=== PATIENT | female | born 1970 | race Two or more races ===

== ENCOUNTER 2023-07-27 15:49 | Inpatient (IN) | payer OTHER ==
[~2023-07-27] VITALS: Ht 162.6 cm; Wt 61.5 kg
[2023-07-27] MEDS ORDERED: FLUMAZENIL 0.1 MG/ML INJ 10ML MDV IV ONE ×2 (15:56→16:15)
[2023-07-27 16:00] VITALS: PULSE 66; RESP 14; O2SAT 100
[2023-07-27] MEDS ORDERED: SODIUM CHLORIDE 0.9% 2,000 ML IV ONE (16:15)
[2023-07-27] MEDS ORDERED: NALOXONE HCL 1MG/ML 2ML SYRINGE IV ONE (16:15)
[2023-07-27] MEDS ORDERED: SODIUM CHLORIDE 0.9% 1,000 ML IV ONE ×3 (16:15→16:45)
[2023-07-27] MEDS ORDERED: InsuLIN REG 1unit/0.01ml Soln (100units/ml) IV ONE (16:15)
[2023-07-27] MEDS ORDERED: SODIUM CHLORIDE 0.9% 1,000 ML IVB ONE (16:45)
[2023-07-27 16:52] LABS: Basophils # (auto) 0 10 ^3/uL (0-0.2); Basophils % (auto) 0.3 % (0.0-2.0); Eosinophils # (auto) 0 10 ^3/uL (0-0.8); Hematocrit 39.3 % (36.0-46.0); Hemoglobin 12.8 g/dL (12.2-16.2); Lymphocytes # (auto) 1.4 10 ^3/uL (0.4-5.4); Lymphocytes % (auto) 10.6 % (10.0-50.0); Mean Corpuscular Hemoglobin 28.6 pg (28.0-32.0); Mean Corpuscular Hgb Conc. 32.5 g/dL (32.0-36.0); Monocytes # (auto) 0.5 10 ^3/uL (0-1.3); Monocytes % (auto) 3.8 % (0.0-12.0); Neutrophils # (auto) 10.9 10 ^3/uL (1.6-8.6); Neutrophils % (auto) 85.3 % (37.0-80.0); Red Blood Cells 4.46 10^6/uL (4.0-5.20); Red Cell Distribution Width 13.6 % (11.8-14.3); White Blood Cell 12.8 10^3/uL (4.4-10.8)
[2023-07-27] MEDS ORDERED: InsuLIN REG 1unit/0.01ml Soln (100units/ml) ONE ×2 (16:59→22:33)
[2023-07-27 17:10] LABS: Alanine Aminotransferase 29 U/L (7-40); Albumin 4.5 g/dL (3.2-4.8); Alkaline Phosphatase 117 U/L (46-116); Anion Gap 8 (5-15); Aspartate Aminotransferase 19 U/L (13-40); BUN/Creatinine Ratio 12.4 (10.0-20.0); Blood Urea Nitrogen 11 mg/dL (9-23); Calcium 9.4 mg/dL (8.7-10.4); Carbon Dioxide 26 mmol/L (20-30); Chloride 97 mmol/L (98-107); Potassium 4.2 mmol/L (3.5-5.1); Sodium 131 mmol/L (136-145)
[2023-07-27 17:11] LABS: Bilirubin, Total 0.3 mg/dL (0.2-1.0); Total Protein 6.7 g/dL (5.7-8.2)
[2023-07-27 17:14] LABS: Glucose 479 mg/dL (74-106)
[2023-07-27] MEDS ORDERED: DEXTROSE (50%) 50ML SYRG IV PRN (18:30)
[2023-07-27] MEDS ORDERED: hydrALAZINE HCL 20 MG/ML VL IV PRN (18:30)
[2023-07-27] MEDS ORDERED: ONDANSETRON HCL 4 MG/2 ML VIAL IV PRN (18:45)
[2023-07-27] MEDS ORDERED: cefTRIAXone 1GM/50ML D5W 50 ML IV ONE ×2 (19:15→21:48)
[2023-07-27] MEDS ORDERED: PANTOPRAZOLE 40 MG/10 ML VIAL INJ IV ONE ×2 (19:15→21:47)
[2023-07-27 19:34] LABS: Urine Bacteria NONE SEEN /hpf (None Seen); Urine Blood Negative /uL (Negative); Urine Clarity HAZY (Clear); Urine Color Colorless (Yellow); Urine Protein, UAD Negative (Negative); Urine Specific Gravity 1.029 (1.001-1.035); Urine Urobilinogen Normal (Negative); Urine WBC 2 /hpf (0 - 5)
[2023-07-27 19:34] LABS: Triglycerides 123 mg/dL (< 150)
[2023-07-27 19:35] LABS: LDL Cholesterol 120 mg/dL (< 100)
[2023-07-27 19:36] LABS: Cholesterol 180 mg/dL (< 200); HDL Cholesterol 52 mg/dL (40-59)
[2023-07-27 19:37] LABS: Amphetamine Screen, Urine Neg (NEGATIVE); Barbiturate Scree,Urine Neg (NEGATIVE); Benzodiazephine Screen, Urine Neg (NEGATIVE)
[2023-07-27 19:38] LABS: Cannabinoid Screen, Urine Neg (NEGATIVE); Cocaine Screen, Urine Neg (NEGATIVE); Opiate Scree,Urine Neg (NEGATIVE); Phencyclidine Screen, Urine Neg (NEGATIVE)
[2023-07-27 19:41] LABS: Lactic Acid w/Reflex 2.9 mmol/L (0.4-2.0)
[2023-07-27 21:32] VITALS: PULSE 79; RESP 20; O2SAT 95
[2023-07-27] MEDS: SODIUM CHLORIDE 0.9% 1,000 ML IV SCH (21:55)
[2023-07-27] MEDS ORDERED: ONDANSETRON HCL 4 MG/2 ML VIAL ONE (21:56)
[2023-07-27] MEDS: ACCU-CHEK COMFORT CURVE STRIP VI SCH (22:23)
[2023-07-27] MEDS: InsuLIN REG 1unit/0.01ml Soln (100units/ml) SC SCH (22:35)
[2023-07-28] MEDS ORDERED: METOCLOPRAMIDE HCL 5MG/ml INJ 2ml VIAL IV PRN (01:45)
[2023-07-28] MEDS ORDERED: METOCLOPRAMIDE HCL 5MG/ml INJ 2ml VIAL ONE (01:45)
[2023-07-28] MEDS ORDERED: MELATONIN 5 MG TAB PO ONE (01:45)
[2023-07-28] MEDS ORDERED: LORazepam 2MG/ML-1ML VIAL IV ONE ×2 (01:45→02:00)
[2023-07-28] MEDS ORDERED: LORazepam 0.5 MG TAB PO ONE (01:45)
[2023-07-28] MEDS ORDERED: MELATONIN 5 MG TAB ONE (01:45)
[2023-07-28] MEDS ORDERED: LORazepam 2MG/ML-1ML VIAL ONE (01:49)
[2023-07-28] MEDS: SODIUM CHLORIDE 0.9% 1,000 ML IV SCH ×2 (04:50→19:45)
[2023-07-28 04:52] LABS: Basophils # (auto) 0 10 ^3/uL (0-0.2); Basophils % (auto) 0.1 % (0.0-2.0); Eosinophils # (auto) 0 10 ^3/uL (0-0.8); Hematocrit 36.4 % (36.0-46.0); Lymphocytes # (auto) 1.4 10 ^3/uL (0.4-5.4); Lymphocytes % (auto) 18.8 % (10.0-50.0); Mean Corpuscular Hemoglobin 28.9 pg (28.0-32.0); Mean Corpuscular Hgb Conc. 32.9 g/dL (32.0-36.0); Mean Corpuscular Volume 87.8 fL (80.0-100.0); Monocytes # (auto) 0.2 10 ^3/uL (0-1.3); Monocytes % (auto) 2.9 % (0.0-12.0); Neutrophils # (auto) 5.8 10 ^3/uL (1.6-8.6); Neutrophils % (auto) 78.2 % (37.0-80.0); Red Blood Cells 4.14 10^6/uL (4.0-5.20); Red Cell Distribution Width 13.8 % (11.8-14.3); White Blood Cell 7.5 10^3/uL (4.4-10.8)
[2023-07-28 07:05] LABS: Alanine Aminotransferase 25 U/L (7-40); Albumin 3.9 g/dL (3.2-4.8); Alkaline Phosphatase 84 U/L (46-116); Anion Gap 10 (5-15); Aspartate Aminotransferase 21 U/L (13-40); Bilirubin, Total 0.2 mg/dL (0.2-1.0); Blood Urea Nitrogen 6 mg/dL (9-23); Calcium 8.3 mg/dL (8.7-10.4); Carbon Dioxide 22 mmol/L (20-30); Chloride 105 mmol/L (98-107); Glucose 188 mg/dL (74-106); Potassium 3.3 mmol/L (3.5-5.1); Total Protein 6.3 g/dL (5.7-8.2)
[2023-07-28 07:07] LABS: Sodium 137 mmol/L (136-145)
[2023-07-28] MEDS: ACCU-CHEK COMFORT CURVE STRIP VI SCH ×3 (07:27→21:57)
[2023-07-28 08:07] VITALS: PULSE 106; RESP 20
[2023-07-28] MEDS ORDERED: InsuLIN REG 1unit/0.01ml Soln (100units/ml) ONE ×3 (08:44→21:51)
[2023-07-28] MEDS ORDERED: PANTOPRAZOLE 40 MG/10 ML VIAL INJ IV ONE (08:46)
[2023-07-28] MEDS ORDERED: cefTRIAXone 1GM/50ML D5W 50 ML IV ONE (08:51)
[2023-07-28] MEDS ORDERED: ENOXAPARIN SOD 40 MG/0.4 ML SYRINGE SC ONE ×2 (08:59→09:00)
[2023-07-28 09:00] VITALS: BP 130/77; PULSE 106; RESP 20; TEMP 98.8; O2SAT 100
[2023-07-28] MEDS: cefTRIAXone 1GM/50ML D5W 50 ML IV SCH (09:02)
[2023-07-28] MEDS: ENOXAPARIN SOD 40 MG/0.4 ML SYRINGE SC SCH (09:02)
[2023-07-28] MEDS: PANTOPRAZOLE 40 MG/10 ML VIAL INJ IV SCH (09:02)
[2023-07-28] MEDS: InsuLIN REG 1unit/0.01ml Soln (100units/ml) SC SCH ×4 (09:04→21:56)
[2023-07-28] MEDS ORDERED: PROP1TAB53 PO (10:05)
[2023-07-28] MEDS ORDERED: QUET300T24 PO (10:05)
[2023-07-28] MEDS ORDERED: ARIP2TAB PO (10:05)
[2023-07-28] MEDS ORDERED: LAM100T PO (10:05)
[2023-07-28] MEDS ORDERED: HYDR50TA32 PO (10:05)
[2023-07-28] MEDS ORDERED: CLON0.5T3 PO (10:05)
[2023-07-28] MEDS ORDERED: GABA-1308 PO (10:05)
[2023-07-28] MEDS ORDERED: DULO60CA41 PO (10:05)
[2023-07-28 13:00] VITALS: BP 116/68; PULSE 88; RESP 16; TEMP 99.6; O2SAT 95
[2023-07-28 16:50] VITALS: BP 126/71; PULSE 95; RESP 18; TEMP 99.1; O2SAT 96
[2023-07-28] MEDS ORDERED: clonazePAM 0.5 MG TAB PO PRN (17:00)
[2023-07-28] MEDS ORDERED: hydrOXYzine 25 MG TAB or CAP ONE (17:30)
[2023-07-28] MEDS: hydrOXYzine 25 MG TAB or CAP PO SCH (17:36)
[2023-07-28 20:00] VITALS: BP 111/66; PULSE 86; PULSE 95; RESP 17; TEMP 98.8; O2SAT 97
[2023-07-28] MEDS ORDERED: QUEtiapine FUMARATE 100 MG TAB ONE (21:50)
[2023-07-28] MEDS ORDERED: GABAPENTIN 400 MG CAP ONE (21:50)
[2023-07-28] MEDS ORDERED: DULoxetine HCL 30 MG CAP PO ONE (21:51)
[2023-07-28] MEDS: QUEtiapine FUMARATE 100 MG TAB PO SCH (21:53)
[2023-07-28] MEDS: DULoxetine HCL 30 MG CAP PO SCH (21:53)
[2023-07-28] MEDS: GABAPENTIN 400 MG CAP PO SCH (21:53)
[2023-07-28 22:00] VITALS: BP 111/66; PULSE 86; RESP 17; TEMP 98.8; O2SAT 97
[2023-07-29] VITALS (7 sets, daily range): BP systolic 116–146; BP diastolic 63–84; PULSE 78–90; RESP 16–22; TEMP 97.8–98.7; O2SAT 93–97
[2023-07-29] MEDS: SODIUM CHLORIDE 0.9% 1,000 ML IV SCH ×3 (04:05→20:49)
[2023-07-29] MEDS: ACCU-CHEK COMFORT CURVE STRIP VI SCH ×4 (06:33→22:02)
[2023-07-29] MEDS: InsuLIN REG 1unit/0.01ml Soln (100units/ml) SC SCH ×4 (06:35→21:54)
[2023-07-29] MEDS: cefTRIAXone 1GM/50ML D5W 50 ML IV SCH (08:45)
[2023-07-29] MEDS: PANTOPRAZOLE 40 MG/10 ML VIAL INJ IV SCH (08:46)
[2023-07-29] MEDS: hydrOXYzine 25 MG TAB or CAP PO SCH (08:46)
[2023-07-29] MEDS: DULoxetine HCL 30 MG CAP PO SCH ×2 (08:46→21:51)
[2023-07-29] MEDS: lamoTRIgine 100 MG TAB PO SCH (08:46)
[2023-07-29] MEDS: ENOXAPARIN SOD 40 MG/0.4 ML SYRINGE SC SCH (08:46)
[2023-07-29] MEDS: PROPRANOLOL HCL 20 MG TAB PO SCH (08:54)
[2023-07-29] MEDS: QUEtiapine FUMARATE 100 MG TAB PO SCH (21:51)
[2023-07-29] MEDS: GABAPENTIN 400 MG CAP PO SCH (21:51)
[2023-07-29] MEDS ORDERED: ACETAMINOPHEN 325 MG TAB PO ONE (22:30)
[2023-07-29] MEDS ORDERED: MELATONIN 5 MG TAB PO ONE (22:45)
[2023-07-30] VITALS (7 sets, daily range): BP systolic 112–140; BP diastolic 66–81; PULSE 71–83; RESP 15–22; TEMP 36.8; O2SAT 93–95
[2023-07-30] MEDS: SODIUM CHLORIDE 0.9% 1,000 ML IV SCH ×3 (05:18→21:45)
[2023-07-30] MEDS: ACCU-CHEK COMFORT CURVE STRIP VI SCH ×4 (06:10→21:40)
[2023-07-30] MEDS: InsuLIN REG 1unit/0.01ml Soln (100units/ml) SC SCH ×4 (06:11→21:23)
[2023-07-30] MEDS: PROPRANOLOL HCL 20 MG TAB PO SCH (09:55)
[2023-07-30] MEDS: DULoxetine HCL 30 MG CAP PO SCH ×2 (09:55→21:40)
[2023-07-30] MEDS: hydrOXYzine 25 MG TAB or CAP PO SCH (09:55)
[2023-07-30] MEDS: lamoTRIgine 100 MG TAB PO SCH (09:55)
[2023-07-30] MEDS: PANTOPRAZOLE 40 MG/10 ML VIAL INJ IV SCH (09:55)
[2023-07-30] MEDS: cefTRIAXone 1GM/50ML D5W 50 ML IV SCH (09:55)
[2023-07-30] MEDS: ENOXAPARIN SOD 40 MG/0.4 ML SYRINGE SC SCH (09:56)
[2023-07-30] MEDS ORDERED: DEXTROSE (50%) 50ML SYRG IV PRN (12:30)
[2023-07-30] MEDS ORDERED: INSU1INJ19 SC (12:35)
[2023-07-30] MEDS: QUEtiapine FUMARATE 100 MG TAB PO SCH (21:40)
[2023-07-30] MEDS: GABAPENTIN 400 MG CAP PO SCH (21:40)
[2023-07-30] MEDS ORDERED: MELATONIN 5 MG TAB PO ONE (22:00)
[2023-07-31] VITALS (8 sets, daily range): BP systolic 96–154; BP diastolic 52–86; PULSE 74–90; RESP 16–20; TEMP 97.9–99; O2SAT 94–98
[2023-07-31] MEDS: ACCU-CHEK COMFORT CURVE STRIP VI SCH ×3 (06:00→17:52)
[2023-07-31] MEDS: SODIUM CHLORIDE 0.9% 1,000 ML IV SCH ×3 (06:05→22:57)
[2023-07-31] MEDS: InsuLIN REG 1unit/0.01ml Soln (100units/ml) SC SCH ×3 (06:34→17:56)
[2023-07-31] MEDS: PANTOPRAZOLE 40 MG/10 ML VIAL INJ IV SCH (10:42)
[2023-07-31] MEDS: DULoxetine HCL 30 MG CAP PO SCH ×2 (10:42→21:18)
[2023-07-31] MEDS: ENOXAPARIN SOD 40 MG/0.4 ML SYRINGE SC SCH (10:42)
[2023-07-31] MEDS: PROPRANOLOL HCL 20 MG TAB PO SCH (10:43)
[2023-07-31] MEDS: lamoTRIgine 100 MG TAB PO SCH (10:43)
[2023-07-31] MEDS: hydrOXYzine 25 MG TAB or CAP PO SCH (10:43)
[2023-07-31] MEDS: GABAPENTIN 400 MG CAP PO SCH (21:18)
[2023-07-31] MEDS: QUEtiapine FUMARATE 100 MG TAB PO SCH (21:18)
[2023-08-01] VITALS (7 sets, daily range): BP systolic 108–145; BP diastolic 64–88; PULSE 70–84; RESP 16–18; TEMP 97.7–98.7; O2SAT 95–100
[2023-08-01] MEDS: InsuLIN REG 1unit/0.01ml Soln (100units/ml) SC SCH ×4 (00:44→17:25)
[2023-08-01] MEDS: ACCU-CHEK COMFORT CURVE STRIP VI SCH ×5 (00:45→23:58)
[2023-08-01] MEDS: hydrOXYzine 25 MG TAB or CAP PO SCH (09:36)
[2023-08-01] MEDS: ENOXAPARIN SOD 40 MG/0.4 ML SYRINGE SC SCH (09:36)
[2023-08-01] MEDS: PROPRANOLOL HCL 20 MG TAB PO SCH (09:36)
[2023-08-01] MEDS: DULoxetine HCL 30 MG CAP PO SCH ×2 (09:36→21:03)
[2023-08-01] MEDS: PANTOPRAZOLE 40 MG/10 ML VIAL INJ IV SCH (09:36)
[2023-08-01] MEDS: lamoTRIgine 100 MG TAB PO SCH (09:36)
[2023-08-01] MEDS: SODIUM CHLORIDE 0.9% 1,000 ML IV SCH ×2 (09:38→15:30)
[2023-08-01] MEDS: GABAPENTIN 400 MG CAP PO SCH (21:03)
[2023-08-01] MEDS: QUEtiapine FUMARATE 100 MG TAB PO SCH (21:03)
[2023-08-02] MEDS: InsuLIN REG 1unit/0.01ml Soln (100units/ml) SC SCH ×3 (00:01→12:00)
[2023-08-02] MEDS: SODIUM CHLORIDE 0.9% 1,000 ML IV SCH ×2 (02:05→08:05)
[2023-08-02 05:00] VITALS: BP 107/67; PULSE 75; RESP 18; TEMP 98.1; O2SAT 94
[2023-08-02] MEDS: ACCU-CHEK COMFORT CURVE STRIP VI SCH ×2 (05:41→12:00)
[2023-08-02 08:00] VITALS: PULSE 76
[2023-08-02 09:00] VITALS: BP 135/86; PULSE 78; RESP 20; TEMP 98.4; O2SAT 97
[2023-08-02] MEDS: hydrOXYzine 25 MG TAB or CAP PO SCH (09:01)
[2023-08-02] MEDS: PANTOPRAZOLE 40 MG/10 ML VIAL INJ IV SCH (09:02)
[2023-08-02] MEDS: lamoTRIgine 100 MG TAB PO SCH (09:02)
[2023-08-02] MEDS: PROPRANOLOL HCL 20 MG TAB PO SCH (09:02)
[2023-08-02] MEDS: DULoxetine HCL 30 MG CAP PO SCH (09:02)
[2023-08-02] MEDS: ENOXAPARIN SOD 40 MG/0.4 ML SYRINGE SC SCH (09:03)
[2023-08-02 11:36] VITALS: BP 135/86; PULSE 78; RESP 20; TEMP 98.4; O2SAT 97
[2023-08-02 12:51] VITALS: BP 141/86; PULSE 80; RESP 20; TEMP 98.5; O2SAT 99
== END 2023-08-02 13:05 | disposition home or self-care (01) | DRG 70 ==
LOC: ER 15:49 → TELE 18:47 → TELE-WESTW 07-28 07:59
PROVIDERS: ADMIT Nurse Practitioner Family; ATTEND Family Medicine
DX: G93.41 Metabolic encephalopathy (principal); E11.10 Type 2 diabetes mellitus with ketoacidosis without coma; J96.01 Acute respiratory failure with hypoxia; E87.1 Hypo-osmolality and hyponatremia; E66.01 Morbid (severe) obesity due to excess calories; G40.909 Epilepsy, unspecified, not intractable, without status epilepticus; F20.9 Schizophrenia, unspecified; E86.0 Dehydration; D72.829 Elevated white blood cell count, unspecified; F41.9 Anxiety disorder, unspecified; F32.A Depression, unspecified; Z79.4 Long term (current) use of insulin; Z79.899 Other long term (current) drug therapy; Z82.49 Family history of ischemic heart disease and other diseases of the circulatory system; Z83.3 Family history of diabetes mellitus; Z90.710 Acquired absence of both cervix and uterus; Z68.23 Body mass index [BMI] 23.0-23.9, adult
CPT/HCPCS: 36415; 36600; 70450; 70551; 71045; 80053; 80061; 80307; 80320; 81001; 82010; 82805; 82962; 83036; 83605; 84443; 84484; 85025; 87040; 93005; 96361; 96365; 96375; 99291; C9113; G0378; J1815; J2405

== ENCOUNTER 2025-02-20 18:28 | Inpatient (IN) | payer OTHER ==
[~2025-02-20] VITALS: Ht 154.9 cm; Wt 74.0 kg
[~2025-02-20 18:28] MED LIST: ARIP2TAB PO; CLON0.5T3 PO; DULO60CA41 PO; GABA-1308 PO; HYDR50TA32 PO; INSU1INJ19 SC; LAM100T PO; PROP1TAB53 PO; QUET300T24 PO
[2025-02-20 19:44] LABS: Hematocrit 40.3 % (36.0-46.0); Hemoglobin 13.5 g/dL (12.2-16.2); Mean Corpuscular Hemoglobin 28.4 pg (28.0-32.0); Mean Corpuscular Volume 85.1 fL (80.0-100.0); Nucleated Red Blood Cells % 0.0 %
[2025-02-20 20:02] LABS: Alanine Aminotransferase 31 U/L (7-40); Albumin 4.4 g/dL (3.2-4.8); Alkaline Phosphatase 113 U/L (46-116); Calcium 10.3 mg/dL (8.7-10.4); Carbon Dioxide 26 mmol/L (20-31); Chloride 101 mmol/L (98-107)
[2025-02-20 20:03] LABS: Anion Gap 10 (5-15); BUN/Creatinine Ratio 14.7 (10.0-20.0); Blood Urea Nitrogen 15 mg/dL (9-23); Magnesium 1.8 mg/dL (1.6-2.6); Potassium 3.9 mmol/L (3.5-5.1); Sodium 137 mmol/L (136-145); Total Protein 7.0 g/dL (5.7-8.2)
[2025-02-20 20:05] LABS: Bilirubin, Total 0.2 mg/dL (0.2-1.0); Glucose 117 mg/dL (74-106)
[2025-02-20 20:12] LABS: Lactic Acid w/Reflex 3.0 mmol/L (0.4-2.0)
--- NOTE | 2025-02-20 20:22 | ED.PDOC ---
History of Present Illness HPI Comments HPI: 54 year old female presents to the emergency department with a chief complaint of hyperglycemia onset today (02/20/25). Patient states she checked BG at home, was over 500, came to ED. Patient took 15 units insulin around 17:00. Upon ED arrival BG was 136. Patient states she is currently experiencing dizziness, worsens when standing. No other symptoms or modifying factors present at this time. Patient is on multiple anxiety medications. She did not take her medications for today. Initial Vitals BP: 104/69 HR: 112 RR: 18 O2: 97% Temp: 98.6 F Past Medical History: DM, seizures, anxiety Past Surgical History: hysterectomy, cholecystectomy Social History: Denies ETOH, smoking, and drug use. Medications: Insulin Allergies: NKDA ALVAREZ: HPI: Poor Historian. REVIEW OF SYSTEMS: CONSTITUTIONAL: Denies acute: fever, diaphoresis, chills, generalized weakness. HEAD: Denies acute: headache, photophobia Eyes: Denies acute: Double vision, vision loss, eye pain, eye discharge. EARS: Denies acute: tinnitus, hearing loss, ear discharge, ear pain, THROAT: Denies acute: sore throat, swelling, difficulty swallowing , pain with swallowing, change in voice. NECK: Denies acute: neck pain, neck swelling, stiff neck. HEART: Denies acute : chest pain, palpitations, LUNGS: Denies acute: SOB, wheezing, cough, hemoptysis ABDOMEN: Denies acute: abdominal pain, Nausea, Vomiting, diarrhea, melena , hematemesis, hematochezia SKIN: Denies acute: rash, redness, lesions, itchiness. EXTREMITIES: Denies acute: calf pain, numbness, tingling, weakness, denies pain in extremity. Denies acute: Low back pain. Neuro: Denies acute: focal neurological deficit, motor or sensory focal neurological deficit, tremors, seizure like activity, confusion, change in mental status, loss of bowel or bladder function, cauda equina like symptoms. : Denies acute: dysuria, hematuria, flank pain, increase in urinary frequency. PSYCH: Denies acute: hallucination, suicidal ideation, homicidal ideation. FEMALE: Denies acute: abnormal vaginal bleeding, foul odor, unusual discharge. PHYSICAL EXAM: General: ----no----acute distress, awake and alert. Head: normocephalic, atraumatic. Neck: supple, trachea is midline, no swelling. Throat: Normal phonation. Eyes:, no erythema, no purulent discharge, no proptosis, no icterus. Heart: regular tachycardia, no significant murmur appreciated. Lungs: no apparent respiratory distress, Able to speak in full sentences. No wheezing, no rhonchi, no crackles. No stridors Clear to auscultation bilaterally. Abdomen: non tender to palpation, non distended, soft, no guarding, no rebound, + bowel sounds. Neuro: Awake, Alert, oriented to name, self, situation, follows commands GCS=15. Speech is normal. Skin: no petechia, no purpura, no cyanosis, non-pale, not jaundice. Lower extremities: --no - Pitting edema no deformity, no focal swelling, no calf TTP. Makes eye contact. moves all four extremities. Face: no apparent facial droop. Ambulating in the ED independently. ED COURSE: DISCLAIMER: This medical document was created using an electronic medical record system with voice recognition software and computerized dictation system. Although this document has been carefully reviewed, there might still be some phonetic and typographical errors. Occasional wrong-word or "sound-alike" substitutions may have occurred due to the inherent limitations of voice recognition software. These areas are purely typographical due to imperfections of the software p devika and do not reflect any compromise in the patient's medical care. Please read the chart carefully and recognize, using context, where these substitutions have occurred. Chief Complaint: Hyperglycemia Time Seen by MD: 20:00 Primary Care Provider: KOLBY Portillo Notes: Medications, Allergies Allergies: Coded Allergies: NO KNOWN ALLERGIES (Unverified , 07/27/23) Home Meds Active Scripts Nitrofurantoin Monohydrate Mac (Macrobid) 100 Mg Cap, 100 MG PO BID for 7 Days, #14 CAP Prov:JOSE ROGEL DO 02/20/25 Reported Medications Insulin Glargine (Basaglar Kwikpen) 100 Unit/Ml Inj, 25 UNIT SC HS, INJ 07/30/23 Propranolol HCl (Propranolol Hydrochloride) 20 Mg Tab, 20 MG PO DAILYP, TAB 07/28/23 Hydroxyzine HCl (Hydroxyzine Hydrochloride) 50 Mg Tab, 50 MG PO DAILYP, TAB 07/28/23 Aripiprazole (Abilify) 2 Mg Tab, 5 MG PO DAILY, TAB 07/28/23 Lamotrigine (Lamictal) 100 Mg Tab, 1 TAB PO DAILY 07/28/23 Clonazepam (KlonoPIN TABLET) 0.5 Mg Tb, 1 TAB PO PRN 07/28/23 Gabapentin (Gabapentin) 100 Mg Cap, 400 MG PO HS 07/28/23 Quetiapine Fumerate (QUETIAPINE FUMARATE) 300 Mg Tab, 300 MG PO HS 07/28/23 Duloxetine Hcl (Cymbalta) 60 Mg Cap, 60 MG PO BID, CAP 07/28/23 Information Source: Patient Mode of Arrival: Ambulatory Severity: Moderate Timing: Hours Duration: Since onset Prehospital treatment: None Past Medical History PAST MEDICAL HISTORY: DM, Seizures Surgical History: Cholecystectomy, Hysterectomy CONSULTATIVE SALES 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 Was a procedure done?: No X-Ray, Labs, Meds, VS Vital Signs Date Time Temp Pulse Resp B/P (MAP) Pulse Ox O2 Delivery O2 Flow Rate FiO2 02/21/25 00:46 97.2 77 20 125/89 (101) 100 97.2 02/20/25 23:08 97.7 94 20 150/90 (110) 100 97.7 02/20/25 23:08 94 20 100 Room Air 02/20/25 19:14 98.6 112 18 104/69 (81) 97 98.6 Lab Test 02/20/25 23:33 02/20/25 21:29 02/20/25 20:09 02/20/25 19:25 Range/Units Lactic Acid Level 2.1 *H 3.0 *H 3.0 *H 0.4-2.0 mmol/L Urine Color Colorless Yellow Urine Clarity Clear Clear Urine pH 6.0 5.0-9.0 Urine Specific [place] 1.006 1.001-1.035 Urine Protein Negative Negative Urine Ketones Negative Negative Urine Blood Negative Negative /uL Urine Nitrite Negative Negative Urine Bilirubin Negative Negative Urine Urobilinogen Normal Negative mg/dL Urine Leukocyte Esterase 2+ Negative /uL Urine RBC 1 0 - 4 /hpf Urine Microscopic WBC 4 0-5 /HPF Urine Squamous Epithelial Cells Few <5 /hpf Urine Bacteria Few H None Seen /hpf Urine Glucose 2+ H Normal mg/dL White Blood Count 7.8 4.4-10.8 10^3/uL Red Blood Count 4.73 4.0-5.20 10^6/uL Hemoglobin 13.5 12.2-16.2 g/dL Hematocrit 40.3 36.0-46.0 % Mean Corpuscular Volume 85.1 80.0-100.0 fL Mean Corpuscular Hemoglobin 28.4 28.0-32.0 pg Mean Corpuscular Hemoglobin Concent 33.4 32.0-36.0 g/dL Red Cell Distribution Width 13.3 11.8-14.3 % Platelet Count 315 140-450 10^3/uL Mean Platelet Volume 7.3 6.9-10.8 fL Neutrophils (%) (Auto) 66.9 37.0-80.0 % Lymphocytes (%) (Auto) 26.6 10.0-50.0 % Monocytes (%) (Auto) 5.0 0.0-12.0 % Eosinophils (%) (Auto) 0.8 0.0-7.0 % Basophils (%) (Auto) 0.7 0.0-2.0 % Neutrophils # (Auto) 5.2 1.6-8.6 10 ^3/uL Lymphocytes # (Auto) 2.1 0.4-5.4 10 ^3/uL Monocytes # (Auto) 0.4 0-1.3 10 ^3/uL Eosinophils # (Auto) 0.1 0-0.8 10 ^3/uL Basophils # (Auto) 0.1 0-0.2 10 ^3/uL Nucleated Red Blood Cells 0.0 % Sodium Level 137 136-145 mmol/L Potassium Level 3.9 3.5-5.1 mmol/L Chloride Level 101 98-107 mmol/L Carbon Dioxide Level 26 20-31 mmol/L Anion Gap 10 5-15 Blood Urea Nitrogen 15 9-23 mg/dL Creatinine 1.02 0.550-1.02 mg/dL Glomerular Filtration Rate Calc 65 >90 mL/min BUN/Creatinine Ratio 14.7 10.0-20.0 Serum Glucose 117 H 74-106 mg/dL Calcium Level 10.3 8.7-10.4 mg/dL Magnesium Level 1.8 1.6-2.6 mg/dL Total Bilirubin 0.2 0.2-1.0 mg/dL Aspartate Amino Transferase (AST) 25 13-40 U/L Alanine Aminotransferase (ALT) 31 7-40 U/L Alkaline Phosphatase 113 46-116 U/L Total Protein 7.0 5.7-8.2 g/dL Albumin 4.4 3.2-4.8 g/dL Test 02/20/25 19:11 Range/Units POC Glucose 136 H 70-106 mg/dl Current Medications Medications (Trade) Dose Ordered Sig/Candace Route Start Time Stop Time Status Last Admin Sodium Chloride 1,000 ml @ 1,000 mls/hr Q1H ONCE IV 02/20/25 20:30 02/20/25 21:29 DC 02/20/25 20:30 Ceftriaxone Sodium 50 ml @ 100 mls/hr ONCE ONCE IV 02/20/25 20:30 02/20/25 20:59 DC 02/20/25 22:37 Sodium Chloride 1,000 ml @ 1,000 mls/hr Q1H ONCE IV 02/20/25 22:45 02/20/25 23:44 DC 02/20/25 23:03 Lorazepam (Ativan Inj) 1 mg ONCE ONCE IV 02/20/25 23:15 02/20/25 23:16 DC 02/20/25 23:43 Time of 1ST Reevaluation: 20:30 Reevaluation 1ST: Unchanged Time of 2ND Reevaluation: 00:48 Reevaluation 2ND: Improved Patient Education/Counseling: Diagnosis, Treatment Family Education/Counseling: No Family Present Comments Patient presented with the above HPI.--mild dizziness/hyperglycemia---workup was initiated. patient was found with the above mentioned diagnosis. the following medications were ordered: please refer to order lists of meds and tests obtained by myself Dr. Rogel. Patient ED course and VS have been stabilized. Patient has been reassessed in the ED and remained in a stable condition. Pertinent incidental findings were discussed with the patient and/or family. Patient/family voices understanding and is agreeable with plan. Patient has been observed in the ED adequate length of time to insure improvement/stability. Escalation of care considered: Consideration of escalation to observation or admission Patient was found with elevated lactic acid and initial tachycardia. Patient has been anxiety. Patient was given at least 2 L normal saline bolus. Repeat lactic acid is still slightly elevated. Heart rate improved. Antibiotics given for UTI. Patient was ADMITTED to the medicine team for further evaluation and treatment of their presentation. All the reports of any imaging studies that were ordered by myself were reviewed by myself. Departure 1 Departure Time of Disposition: 21:58 Impression: Primary Impression: UTI (urinary tract infection) Additional Impression: Elevated lactic acid level Disposition: HOME / SELF CARE / HOMELESS Admit to: Tele Condition: Guarded Additional Instructions: e-Prescriptions Nitrofurantoin Monohydrate Mac (Macrobid) 100 Mg Cap 100 MG PO BID for 7 Days, #14 CAP Prov: JOSE ROGEL DO 02/20/25 Discharged With: Self Critical Care Note Critical Care Time?: No I personally scribed for JOSE ROGEL DO ([email or web address]) on 02/20/25 at 20:21. Bev ctronically submitted by Cayla Glez ([email or web address]). JOSE ROGEL DO Feb 20, 2025 20:21
[2025-02-20] MEDS: SODIUM CHLORIDE 0.9% 1,000 ML IV ONE ×2 (20:30→23:03)
[2025-02-20 20:58] LABS: Urine Protein, UAD Negative (Negative)
[2025-02-20] MEDS ORDERED: NITR-87 PO (21:58)
[2025-02-20] MEDS: cefTRIAXone 1GM/50ML D5W 50 ML IV ONE (22:37)
[2025-02-20] MEDS: LORazepam 2MG/ML-1ML VIAL IV ONE (23:43)
[2025-02-21] VITALS (7 sets, daily range): BP systolic 114–140; BP diastolic 78–89; PULSE 93–97; RESP 17–18; TEMP 98–100.2; O2SAT 96–97
[2025-02-21 00:32] LABS: Lactic Acid w/Reflex 2.1 mmol/L (0.4-2.0)
[2025-02-21] MEDS ORDERED: ACETAMINOPHEN 325 MG TAB PO PRN (03:30)
[2025-02-21] MEDS ORDERED: LORazepam 2MG/ML-1ML VIAL IV PRN (03:30)
[2025-02-21] MEDS ORDERED: DEXTROSE (50%) 50ML SYRG IV PRN (03:30)
[2025-02-21] MEDS ORDERED: ONDANSETRON HCL 4 MG/2 ML VIAL IV PRN (03:30)
[2025-02-21] MEDS ORDERED: HYDROcodone-ACET 5/325MG TAB PO PRN (03:30)
[2025-02-21] MEDS ORDERED: NITROGLYCERIN 0.4 MG SL TAB SL PRN (03:30)
[2025-02-21] MEDS ORDERED: MORPHINE SULFATE INJ 2 MG/ml SYRG IV PRN (03:30)
[2025-02-21] MEDS ORDERED: DOCUSATE SOD 100 MG CAP PO PRN (03:30)
--- NOTE | 2025-02-21 03:55 | DVHHP2 ---
History of Present Illness Reason for Visit: UTI (urinary tract infection) History of Present Illness The patient is a 54-year-old female with past medical history of anxiety, diabetes mellitus, and seizures who presented to [facility] ED with complaint of elevated blood sugar. Patient reports she checked blood glucose at home, and it was over 500, so she decided came to ED. Patient took 15 units insulin around 17:00, blood sugar initial in the ED was 136. Patient states she is currently experiencing dizziness, worsens when standing. Patient was seen and evaluated in the ED, laboratory data shows WBC 7.8, platelets 315, sodium 137, potassium 3.9, BUN 15, creatinine 1.02, glucose 117, calcium 10.3, lactic acid 3.0 trending down to 1.7, blood pressure 125/89, heart rate 77, temperature 97.6 F, O2 saturation 99% on room air. Urinalysis positive for urinary tract infection. Patient was started on IV antibiotic regimen Rocephin, please see medication orders section in the computer. On my assessment, patient denied chest pain, no headache, no dizziness, no blurry vision, no shortness of breath, no nausea, no vomiting, no fever, no chills. Patient was admitted for further evaluation and medical management. Past Medical History DM, seizures, anxiety, depression Past Surgical History Hysterectomy, cholecystectomy Family History Reviewed, noncontributory to the management of this case. Past Social History The patient lives at home, denies smoking, alcohol or illicit drugs abuse. Review of Systems Constitutional: Yes: Weakness; No: Fever, Chills, Sweats, Malaise, Other Eyes: No: Pain, Vision change, Conjunctivae inflammation, Eyelid inflammation, Other, Redness ENT: No: Ear pain, Ear discharge, Nose pain, Nose discharge, Nose congestion, Mouth pain, Mouth swelling, Throat pain, Throat swelling, Other Respiratory: No: Cough, Dry, Shortness of breath, SOB with excertion, Wheezing, Hemoptysis, Pleuritic Pain, Sputum, Wheezing, Other Cardiovascular: Other (Dizziness); No: Chest Pain, Palpitations, Orthopnea, Paroxysmal Noc. Dyspnea, Edema, Lt Headedness Gastrointestinal: No: Nausea, Vomiting, Abdominal Pain, Diarrhea, Constipation, Melena, Hematochezia, Other Genitourinary: No Dysuria, No Frequency, No Incontinence, No Hematuria, No Retention, No Other Musculoskeletal: No: other, neck pain, shoulder pain, arm pain, back pain, hand pain, leg pain, foot pain Skin: No: Rash, Lesions, Jaundice, Bruising, Other Neurological: No: Weakness, Numbness, Incoordination, Change in speech, Confusion, Seizures, Other Allergies: Coded Allergies: NO KNOWN ALLERGIES (Unverified , 07/27/23) Exam Vital Signs Vital Signs Date Time Temp Pulse Resp B/P (MAP) Pulse Ox O2 Delivery O2 Flow Rate FiO2 02/21/25 00:46 97.2 77 20 125/89 (101) 100 97.2 02/20/25 23:08 Room Air General Appearance: Alert, Oriented X3, Cooperative, No acute distress HEENT: Atraumatic, PERRLA, EOMI, Mucous membr. moist/pink Respiratory: Clear to auscultation, Normal air movement Cardiovascular: Regular rate, Normal S1, Normal S2, No murmurs Abdominal: Normal bowel sounds, Soft, No tenderness, No hepatospenomegaly, No masses Extremities: No clubbing, No cyanosis, No edema, Normal pulses, No t enderness/swelling Skin: No rashes, No breakdown, No significant lesion Neuro: Normal speech, Normal tone, Sensation intact, Cranial nerves 3-12 NL, Reflexes 2+, Other (Generalized weakness) Psych/Mental Status: Mental status NL, Mood NL Labs/Xrays Labs Test 02/21/25 01:50 02/20/25 20:09 02/20/25 19:25 02/20/25 19:11 Range/Units Lactic Acid Level 1.7 0.4-2.0 mmol/L Urine Color Colorless Yellow Urine Clarity Clear Clear Urine pH 6.0 5.0-9.0 Urine Specific [place] 1.006 1.001-1.035 Urine Protein Negative Negative Urine Ketones Negative Negative Urine Blood Negative Negative /uL Urine Nitrite Negative Negative Urine Bilirubin Negative Negative Urine Urobilinogen Normal Negative mg/dL Urine Leukocyte Esterase 2+ Negative /uL Urine RBC 1 0 - 4 /hpf Urine Microscopic WBC 4 0-5 /HPF Urine Squamous Epithelial Cells Few <5 /hpf Urine Bacteria Few H None Seen /hpf Urine Glucose 2+ H Normal mg/dL White Blood Count 7.8 4.4-10.8 10^3/uL Red Blood Count 4.73 4.0-5.20 10^6/uL Hemoglobin 13.5 12.2-16.2 g/dL Hematocrit 40.3 36.0-46.0 % Mean Corpuscular Volume 85.1 80.0-100.0 fL Mean Corpuscular Hemoglobin 28.4 28.0-32.0 pg Mean Corpuscular Hemoglobin Concent 33.4 32.0-36.0 g/dL Red Cell Distribution Width 13.3 11.8-14.3 % Platelet Count 315 140-450 10^3/uL Mean Platelet Volume 7.3 6.9-10.8 fL Neutrophils (%) (Auto) 66.9 37.0-80.0 % Lymphocytes (%) (Auto) 26.6 10.0-50.0 % Monocytes (%) (Auto) 5.0 0.0-12.0 % Eosinophils (%) (Auto) 0.8 0.0-7.0 % Basophils (%) (Auto) 0.7 0.0-2.0 % Neutrophils # (Auto) 5.2 1.6-8.6 10 ^3/uL Lymphocytes # (Auto) 2.1 0.4-5.4 10 ^3/uL Monocytes # (Auto) 0.4 0-1.3 10 ^3/uL Eosinophils # (Auto) 0.1 0-0.8 10 ^3/uL Basophils # (Auto) 0.1 0-0.2 10 ^3/uL Nucleated Red Blood Cells 0.0 % Sodium Level 137 136-145 mmol/L Potassium Level 3.9 3.5-5.1 mmol/L Chloride Level 101 98-107 mmol/L Carbon Dioxide Level 26 20-31 mmol/L Anion Gap 10 5-15 Blood Urea Nitrogen 15 9-23 mg/dL Creatinine 1.02 0.550-1.02 mg/dL Glomerular Filtration Rate Calc 65 >90 mL/min BUN/Creatinine Ratio 14.7 10.0-20.0 Serum Glucose 117 H 74-106 mg/dL Calcium Level 10.3 8.7-10.4 mg/dL Magnesium Level 1.8 1.6-2.6 mg/dL Total Bilirubin 0.2 0.2-1.0 mg/dL Aspartate Amino Transferase (AST) 25 13-40 U/L Alanine Aminotransferase (ALT) 31 7-40 U/L Alkaline Phosphatase 113 46-116 U/L Total Protein 7.0 5.7-8.2 g/dL Albumin 4.4 3.2-4.8 g/dL POC Glucose 136 H 70-106 mg/dl SEPSIS Sepsis Screen Date sepsis recognized/suspect: Feb 20, 2025 Time Sepsis recognized/suspect: 2308 Recent Procedure: No On Antibiotic Therapy: No Respiratory Rate >20: No Heart Rate >90: Yes Temp<36 C (96.8 F) or >38.3 C: No SBP <90 or MAP <65 mmHG: No New Acute Mental Status Change: No Is the patient on CPAP, BIPAP,: No Vital Signs Date Time Temp Pulse Resp B/P (MAP) Pulse Ox O2 Delivery O2 Flow Rate FiO2 02/21/25 00:46 97.2 77 20 125/89 (101) 100 97.2 02/20/25 23:08 97.7 94 20 150/90 (110) 100 97.7 02/20/25 23:08 94 20 100 Room Air Laboratory Tests Test 02/20/25 19:25 02/20/25 21:29 02/20/25 23:33 02/21/25 01:50 Lactic Acid Level 3.0 mmol/L (0.4-2.0) *H 3.0 mmol/L (0.4-2.0) *H 2.1 mmol/L (0.4-2.0) *H 1.7 mmol/L (0.4-2.0) White Blood Count 7.8 10^3/uL (4.4-10.8) Medications Medications Dose Ordered Sig/Candace Route Start Time Stop Time Status Last Admin Dose Admin Ceftriaxone Sodium 50 ml @ 100 mls/hr ONCE ONCE IV 02/20/25 20:30 02/20/25 20:59 DC 02/20/25 22:37 100 MLS/HR Lorazepam 1 mg ONCE ONCE IV 02/20/25 23:15 02/20/25 23:16 DC 02/20/25 23:43 1 MG Sodium Chloride 1,000 ml @ 1,000 mls/hr Q1H ONCE IV 02/20/25 20:30 02/20/25 21:29 DC 02/20/25 20:30 1,000 MLS/HR Sodium Chloride 1,000 ml @ 1,000 mls/hr Q1H ONCE IV 02/20/25 22:45 02/20/25 23:44 DC 02/20/25 23:03 1,000 MLS/HR Assessment/Plan Assessment/Plan UTI (urinary tract infection) Elevated lactic acid level Generalized weakness Plan 1. Admit to med surge unit 2. Breathing treatment 3. Pain control management 4. IV antibiotic management 5. Management of fluids and electrolytes 6. Consultation for hospitalist 7. Diagnostic test chest x-ray 8. DVT prophylaxis on SCDs 9. Repeat labs CBC, CMP in a.m. 10. Home medication reviewed and reconciled 11. Continue with current medical management 12. Treatment plan discussed with patient and RN. Patient verbalized understanding. Plan discussed with: Patient, Other (RN) Problem List: (1) UTI (urinary tract infection) (2) Elevated lactic acid level (3) Generalized weakness Date of Service: Feb 21, 2025 Billing Provider: VICKEY QUINTERO DNP Common Visit Codes: [id number] INP/OBS CARE (HIGH) VICKEY QUINTERO DNP Feb 21, 2025 03:55
[2025-02-21] MEDS: ACCU-CHEK COMFORT CURVE STRIP VI SCH (06:26)
[2025-02-21] MEDS: SODIUM CHLORIDE 0.9% 1,000 ML IV SCH ×2 (06:26→14:00)
[2025-02-21] MEDS: InsuLIN REG 1unit/0.01ml Soln (100units/ml) SC SCH (06:31)
[2025-02-21] MEDS: GABAPENTIN 100 MG CAP PO SCH (08:53)
[2025-02-21] MEDS: lamoTRIgine 100 MG TAB PO SCH (08:53)
[2025-02-21] MEDS: cefTRIAXone 1GM/50ML D5W 50 ML IV SCH (08:53)
[2025-02-21 09:04] LABS: Hematocrit 36.0 % (36.0-46.0); Hemoglobin 12.1 g/dL (12.2-16.2); Mean Corpuscular Hemoglobin 28.5 pg (28.0-32.0); Mean Corpuscular Volume 85.0 fL (80.0-100.0); Nucleated Red Blood Cells % 0.0 %
[2025-02-21 09:18] LABS: Alanine Aminotransferase 27 U/L (7-40); Albumin 3.8 g/dL (3.2-4.8); Alkaline Phosphatase 97 U/L (46-116); Anion Gap 6 (5-15); BUN/Creatinine Ratio 14.1 (10.0-20.0); Blood Urea Nitrogen 13 mg/dL (9-23); Calcium 9.3 mg/dL (8.7-10.4); Carbon Dioxide 26 mmol/L (20-31); Potassium 4.2 mmol/L (3.5-5.1); Sodium 140 mmol/L (136-145); Total Protein 6.0 g/dL (5.7-8.2)
[2025-02-21 09:19] LABS: Bilirubin, Total 0.2 mg/dL (0.2-1.0); Chloride 108 mmol/L (98-107); Glucose 194 mg/dL (74-106)
--- NOTE | 2025-02-21 13:43 | DVHPN2 ---
Reviewed: Care Plan, H&P, Labs, Medications, Previous Orders, Radiology Changes from previous H/P or p: No Changes Eyes: No Pain, No Vision change, No Conjunctivae inflammation, No Eyelid inflammation, No Other, No Redness ENT: No Ear pain, No Ear discharge, No Nose pain, No Nose discharge, No Nose congestion, No Mouth pain, No Mouth swelling, No Throat pain, No Throat swelling, No Other Cardiovascular: No Chest Pain, No Palpitations, No Orthopnea, No Paroxysmal Noc. Dyspnea, No Edema, No Lt Headedness; Other (Dizziness) Respiratory: No Cough, No Dry, No Shortness of breath, No SOB with excertion, No Wheezing, No Hemoptysis, No Pleuritic Pain, No Sputum, No Other Gastrointestinal: No Nausea, No Vomiting, No Abdominal Pain, No Diarrhea, No Constipation, No Melena, No Hematochezia, No Other Genitourinary: No Dysuria, No Frequency, No Incontinence, No Hematuria, No Retention, No Other Musculoskeletal: No other, No neck pain, No shoulder pain, No arm pain, No back pain, No hand pain, No leg pain, No foot pain Skin: No Rash, No Lesions, No Jaundice, No Bruising, No Other Objective Vitals Vital Signs Date Time Temp Pulse Resp B/P (MAP) Pulse Ox O2 Delivery O2 Flow Rate FiO2 02/21/25 12:42 98.3 93 18 130/84 (99) 96 98.3 02/21/25 07:45 Room Air* 0 21 Intake/Output Intake and Output 02/21/25 07:00 Intake Total 1050 ml Balance 1050 ml Intake IV Total 1050 ml # Voids 2 Medications Current Medications Medications Dose Ordered Sig/Candace Route Start Time Stop Time Status Last Admin Dose Admin Ceftriaxone Sodium 50 ml @ 100 mls/hr DAILY@09 IV 02/21/25 09:00 02/21/25 08:53 100 MLS/HR Lamotrigine 100 mg DAILY PO 02/21/25 10:00 02/21/25 08:53 100 MG Gabapentin 200 mg BID PO 02/21/25 10:00 02/21/25 08:53 200 MG Quetiapine Fumarate 200 mg HS PO 02/21/25 22:00 Duloxetine HCl 60 mg DAILY PO 02/21/25 10:00 02/21/25 08:53 60 MG Lorazepam 1 mg Q6HP PRN IV 02/21/25 03:30 Diagnostic Test (Pha) 1 strip ACHS 02/21/25 07:00 02/21/25 11:34 1 STRIP Insulin Human Regular ACHS SC 02/21/25 07:00 02/21/25 11:36 3 UNITS Dextrose 50 ml UD PRN IV 02/21/25 03:30 Sodium Chloride 1,000 ml @ 60 mls/hr [id number] IV 02/21/25 03:30 02/21/25 06:26 60 MLS/HR Acetaminophen/ Hydrocodone Bitart 1 tab Q4HP PRN PO 02/21/25 03:30 Ondansetron HCl 4 mg Q4HP PRN IV 02/21/25 03:30 Docusate Sodium 100 mg BIDPRN PRN PO 02/21/25 03:30 Acetaminophen 650 mg Q6HP PRN PO 02/21/25 03:30 Nitroglycerin 0.4 mg Q5MINP PRN SL 02/21/25 03:30 Morphine Sulfate 2 mg Q30M PRN IV 02/21/25 03:30 Laboratory Results Laboratory Tests 02/21/25 08:30 Chemistry Test 02/20/25 19:25 02/21/25 08:30 Albumin 4.4 g/dL (3.2-4.8) 3.8 g/dL (3.2-4.8) Calcium Level 10.3 mg/dL (8.7-10.4) 9.3 mg/dL (8.7-10.4) Magnesium Level 1.8 mg/dL (1.6-2.6) Total Protein 7.0 g/dL (5.7-8.2) 6.0 g/dL (5.7-8.2) LFT Test 02/20/25 19:25 02/21/25 08:30 Alanine Aminotransferase (ALT) 31 U/L (7-40) 27 U/L (7-40) Alkaline Phosphatase 113 U/L (46-116) 97 U/L (46-116) Aspartate Amino Transferase (AST) 25 U/L (13-40) 25 U/L (13-40) Total Bilirubin 0.2 mg/dL (0.2-1.0) 0.2 mg/dL (0.2-1.0) Urinalysis Test 02/20/25 20:09 Urine Color Colorless (Yellow) Urine Clarity Clear (Clear) Urine pH 6.0 (5.0-9.0) Urine Specific [place] 1.006 (1.001-1.035) Urine Protein Negative (Negative) Urine Ketones Negative (Negative) Urine Blood Negative /uL (Negative) Urine Nitrite Negative (Negative) Urine Bilirubin Negative (Negative) Urine Urobilinogen Normal mg/dL (Negative) Urine Leukocyte Esterase 2+ /uL (Negative) Urine RBC 1 /hpf (0 - 4) Urine Microscopic WBC 4 /HPF (0-5) Urine Squamous Epithelial Cells Few /hpf (<5) Urine Bacteria Few /hpf (None Seen) H Urine Glucose 2+ mg/dL (Normal) H Labs and/or images reviewed: Labs reviewed by me, Image(s) reviewed by me Assessment/Plan Assessment/Plan Acute generalized weakness Acute urinary tract infection: Blood cultures urine cultures Rocephin Acute lactic acidosis History of seizures Anxiety Depression Uncontrolled diabetes with blood sugar in the range of 250: Insulin sliding scale Time spent 50 minutes Advanced care planning time 20 minutes Patient is full code Plan discussed with: Patient Date of Service: Feb 21, 2025 Billing Provider: JESSICA DONNELLY MD Common Visit Codes: [id number] INP/OBS CARE(HIGH) JESSICA DONNELLY MD Feb 21, 2025 13:43
[2025-02-22 01:00] VITALS: BP 140/91; PULSE 83; RESP 16; TEMP 98.1; O2SAT 97
[2025-02-22 05:00] VITALS: BP 157/94; PULSE 86; RESP 17; TEMP 98.1; O2SAT 98
[2025-02-22 06:14] LABS: Hematocrit 35.5 % (36.0-46.0); Hemoglobin 12.0 g/dL (12.2-16.2); Mean Corpuscular Hemoglobin 28.8 pg (28.0-32.0); Mean Corpuscular Volume 84.9 fL (80.0-100.0); Nucleated Red Blood Cells % 0.0 %
[2025-02-22 06:31] LABS: Albumin 3.7 g/dL (3.2-4.8); BUN/Creatinine Ratio 14.0 (10.0-20.0); Blood Urea Nitrogen 12 mg/dL (9-23); Calcium 9.1 mg/dL (8.7-10.4); Chloride 104 mmol/L (98-107); Potassium 4.3 mmol/L (3.5-5.1); Sodium 138 mmol/L (136-145); Total Protein 5.9 g/dL (5.7-8.2)
[2025-02-22 06:32] LABS: Alanine Aminotransferase 50 U/L (7-40); Alkaline Phosphatase 117 U/L (46-116); Bilirubin, Total 0.2 mg/dL (0.2-1.0); Glucose 201 mg/dL (74-106)
[2025-02-22 06:43] LABS: Anion Gap 7 (5-15); Carbon Dioxide 27 mmol/L (20-31)
[2025-02-22 08:41] VITALS: BP 127/82; PULSE 91; RESP 17; TEMP 98.4; O2SAT 96
[2025-02-22] MEDS ORDERED: CIPR-173 PO (10:30)
--- NOTE | 2025-02-22 10:30 | DVHPN2 ---
Reviewed: Care Plan, H&P, Labs, Medications, Previous Orders, Radiology Changes from previous H/P or p: No Changes Eyes: No Pain, No Vision change, No Conjunctivae inflammation, No Eyelid inflammation, No Other, No Redness ENT: No Ear pain, No Ear discharge, No Nose pain, No Nose discharge, No Nose congestion, No Mouth pain, No Mouth swelling, No Throat pain, No Throat swelling, No Other Cardiovascular: No Chest Pain, No Palpitations, No Orthopnea, No Paroxysmal Noc. Dyspnea, No Edema, No Lt Headedness; Other (Dizziness) Respiratory: No Cough, No Dry, No Shortness of breath, No SOB with excertion, No Wheezing, No Hemoptysis, No Pleuritic Pain, No Sputum, No Other Gastrointestinal: No Nausea, No Vomiting, No Abdominal Pain, No Diarrhea, No Constipation, No Melena, No Hematochezia, No Other Genitourinary: No Dysuria, No Frequency, No Incontinence, No Hematuria, No Retention, No Other Musculoskeletal: No other, No neck pain, No shoulder pain, No arm pain, No back pain, No hand pain, No leg pain, No foot pain Skin: No Rash, No Lesions, No Jaundice, No Bruising, No Other Objective Vitals Vital Signs Date Time Temp Pulse Resp B/P (MAP) Pulse Ox O2 Delivery O2 Flow Rate FiO2 02/22/25 08:41 98.4 91 17 127/82 (97) 96 98.4 02/21/25 20:00 Room Air* 0 21 Intake/Output Intake and Output 02/22/25 07:00 Intake Total 1350 ml Balance 1350 ml Intake Oral 1350 ml # Voids 3 # Bowel Movements 1 Medications Current Medications Medications Dose Ordered Sig/Candace Route Start Time Stop Time Status Last Admin Dose Admin Ceftriaxone Sodium 50 ml @ 100 mls/hr DAILY@09 IV 02/21/25 09:00 02/22/25 10:17 100 MLS/HR Lamotrigine 100 mg DAILY PO 02/21/25 10:00 02/22/25 10:17 100 MG Gabapentin 200 mg BID PO 02/21/25 10:00 02/22/25 10:17 200 MG Quetiapine Fumarate 200 mg HS PO 02/21/25 22:00 02/21/25 21:19 200 MG Duloxetine HCl 60 mg DAILY PO 02/21/25 10:00 02/22/25 10:17 60 MG Lorazepam 1 mg Q6HP PRN IV 02/21/25 03:30 Diagnostic Test (Pha) 1 strip ACHS 02/21/25 07:00 02/22/25 06:29 1 STRIP Insulin Human Regular ACHS SC 02/21/25 07:00 02/22/25 06:29 6 UNITS Dextrose 50 ml UD PRN IV 02/21/25 03:30 Acetaminophen/ Hydrocodone Bitart 1 tab Q4HP PRN PO 02/21/25 03:30 Ondansetron HCl 4 mg Q4HP PRN IV 02/21/25 03:30 Docusate Sodium 100 mg BIDPRN PRN PO 02/21/25 03:30 Acetaminophen 650 mg Q6HP PRN PO 02/21/25 03:30 Nitroglycerin 0.4 mg Q5MINP PRN SL 02/21/25 03:30 Morphine Sulfate 2 mg Q30M PRN IV 02/21/25 03:30 Sodium Chloride 1,000 ml @ 150 mls/hr Q6H40M IV 02/21/25 14:00 02/22/25 07:36 150 MLS/HR Laboratory Results Laboratory Tests 02/22/25 05:19 Chemistry Test 02/22/25 05:19 Albumin 3.7 g/dL (3.2-4.8) Calcium Level 9.1 mg/dL (8.7-10.4) Total Protein 5.9 g/dL (5.7-8.2) LFT Test 02/22/25 05:19 Alanine Aminotransferase (ALT) 50 U/L (7-40) H Alkaline Phosphatase 117 U/L (46-116) H Aspartate Amino Transferase (AST) 50 U/L (13-40) H Total Bilirubin 0.2 mg/dL (0.2-1.0) Urinalysis Test 02/20/25 20:09 Urine Color Colorless (Yellow) Urine Clarity Clear (Clear) Urine pH 6.0 (5.0-9.0) Urine Specific [place] 1.006 (1.001-1.035) Urine Protein Negative (Negative) Urine Ketones Negative (Negative) Urine Blood Negative /uL (Negative) Urine Nitrite Negative (Negative) Urine Bilirubin Negative (Negative) Urine Urobilinogen Normal mg/dL (Negative) Urine Leukocyte Esterase 2+ /uL (Negative) Urine RBC 1 /hpf (0 - 4) Urine Microscopic WBC 4 /HPF (0-5) Urine Squamous Epithelial Cells Few /hpf (<5) Urine Bacteria Few /hpf (None Seen) H Urine Glucose 2+ mg/dL (Normal) H Labs and/or images reviewed: Labs reviewed by me, Image(s) reviewed by me Assessment/Plan Assessment/Plan Acute generalized weakness Mild urinary tract infection: Treated with Rocephin Acute lactic acidosis History of seizures Anxiety Depression Uncontrolled diabetes with blood sugar in the range of 250: Insulin sliding scale Patient feels better and wants to go home Plan discussed with: Patient My Orders Orders - JESSICA DONNELLY MD Procedure Category Date Status Time Sodium Chloride 0.9% PHA 02/21/25 In Process 14:00 * Dietary Consult CONS 02/21/25 Transmitted 15:00 Cleanse Wound With NAVNEET 02/21/25 In Process Wound Clean 11:44 Date of Service: Feb 22, 2025 Billing Provider: JESSICA DONNELLY MD Common Visit Codes: [id number] INP/OBS CARE(HIGH) JESSICA DONNELLY MD Feb 22, 2025 10:29
--- NOTE | 2025-02-22 10:36 | DVHDS2 ---
Discharge Summary Date of Admission Feb 21, 2025 at 03:28 Date of Discharge: Feb 22, 2025 Admitting Diagnosis Elevated blood sugar Wounds: None Labs/Diagnostic Data: Laboratory Results Test 02/22/25 05:57 02/22/25 05:19 02/21/25 01:50 02/20/25 20:09 POC Glucose 251 mg/dl (70-106) White Blood Count 5.5 10^3/uL (4.4-10.8) Red Blood Count 4.18 10^6/uL (4.0-5.20) Hemoglobin 12.0 g/dL (12.2-16.2) Hematocrit 35.5 % (36.0-46.0) Mean Corpuscular Volume 84.9 fL (80.0-100.0) Mean Corpuscular Hemoglobin 28.8 pg (28.0-32.0) Mean Corpuscular Hemoglobin Concent 33.9 g/dL (32.0-36.0) Red Cell Distribution Width 13.0 % (11.8-14.3) Platelet Count 282 10^3/uL (140-450) Mean Platelet Volume 7.5 fL (6.9-10.8) Neutrophils (%) (Auto) 47.7 % (37.0-80.0) Lymphocytes (%) (Auto) 43.1 % (10.0-50.0) Monocytes (%) (Auto) 5.9 % (0.0-12.0) Eosinophils (%) (Auto) 2.5 % (0.0-7.0) Basophils (%) (Auto) 0.8 % (0.0-2.0) Neutrophils # (Auto) 2.6 10 ^3/uL (1.6-8.6) Lymphocytes # (Auto) 2.4 10 ^3/uL (0.4-5.4) Monocytes # (Auto) 0.3 10 ^3/uL (0-1.3) Eosinophils # (Auto) 0.1 10 ^3/uL (0-0.8) Basophils # (Auto) 0 10 ^3/uL (0-0.2) Nucleated Red Blood Cells 0.0 % Sodium Level 138 mmol/L (136-145) Potassium Level 4.3 mmol/L (3.5-5.1) Chloride Level 104 mmol/L (98-107) Carbon Dioxide Level 27 mmol/L (20-31) Anion Gap 7 (5-15) Blood Urea Nitrogen 12 mg/dL (9-23) Creatinine 0.86 mg/dL (0.550-1.02) Glomerular Filtration Rate Calc 80 mL/min (>90) BUN/Creatinine Ratio 14.0 (10.0-20.0) Serum Glucose 201 mg/dL (74-106) Calcium Level 9.1 mg/dL (8.7-10.4) Total Bilirubin 0.2 mg/dL (0.2-1.0) Aspartate Amino Transferase (AST) 50 U/L (13-40) Alanine Aminotransferase (ALT) 50 U/L (7-40) Alkaline Phosphatase 117 U/L (46-116) Total Protein 5.9 g/dL (5.7-8.2) Albumin 3.7 g/dL (3.2-4.8) Lactic Acid Level 1.7 mmol/L (0.4-2.0) Urine Color Colorless (Yellow) Urine Clarity Clear (Clear) Urine pH 6.0 (5.0-9.0) Urine Specific [place] 1.006 (1.001-1.035) Urine Protein Negative (Negative) Urine Ketones Negative (Negative) Urine Blood Negative /uL (Negative) Urine Nitrite Negative (Negative) Urine Bilirubin Negative (Negative) Urine Urobilinogen Normal mg/dL (Negative) Urine Leukocyte Esterase 2+ /uL (Negative) Urine RBC 1 /hpf (0 - 4) Urine Microscopic WBC 4 /HPF (0-5) Urine Squamous Epithelial Cells Few /hpf (<5) Urine Bacteria Few /hpf (None Seen) Urine Glucose 2+ mg/dL (Normal) Test 02/20/25 19:25 Magnesium Level 1.8 mg/dL (1.6-2.6) Other Laboratory Tests 02/22/25 05:19 Brief Hx & Hospital Course: 4-year-old female with a history of anxiety seizures depression came in complaining of elevated blood sugars blood sugars in the range of 250 treated with the insulin sliding scale mild UTI treated with Rocephin patient feels better and wants to go home discharged home on Cipro for UTI ideas advised to check blood sugar 3 times a day and take diabetes medications regularly. Consults/Reason for consult None Operations or Procedures None Condition at Discharge: Fair Final Diagnosis/Problems List Acute generalized weakness Mild urinary tract infection: Treated with Rocephin Acute lactic acidosis History of seizures Anxiety Depression Uncontrolled diabetes with blood sugar in the range of 250: Insulin sliding scale Discharge Disposition: Home Discharge Instruct/Medications Diet: Consistent carbohydrate Activity: Light activity Follow Up/Referral: Follow up with the primary Dr Resume your previous home medications Check your blood sugar 3 times a day Medications: Cipro Transmitted to pharmacy Scheduled Aripiprazole (Abilify), 5 MG PO DAILY, (Reported) Ciprofloxacin Hcl (Cipro), 1 TAB PO BID Clonazepam (KlonoPIN TABLET), 1 TAB PO PRN, (Reported) Duloxetine Hcl (Cymbalta), 60 MG PO BID, (Reported) Gabapentin (Gabapentin), 400 MG PO HS, (Reported) Hydroxyzine HCl (Hydroxyzine Hydrochloride), 50 MG PO DAILYP, (Reported) Insulin Glargine (Basaglar Kwikpen), 25 UNIT SC HS, (Reported) Lamotrigine (Lamictal), 1 TAB PO DAILY, (Reported) Nitrofurantoin Monohydrate Mac (Macrobid), 100 MG PO BID Propranolol HCl (Propranolol Hydrochloride), 20 MG PO DAILYP, (Reported) Quetiapine Fumerate (Quetiapine Fumarate), 300 MG PO HS, (Reported) 35 (Time taken for discharge summary 35 minutes) Discharge Statement: "Patient was advised to return to the ER or call 911 if any headaches, dizziness, shortness of breath, chest pain, abdominal pain, bleeding, fevers, or worsening of medical condition. Patient was counseled about treatment plan, medications, possible side effects, patientverbalized understanding. All questions were answered to the best of my ability. This discharge took greater then 30 minutes in planning, reviewing documentation, counseling the patient, and discussing with other team members." ASSESSMENT ASSESSMENT Hospital Course Improved Assessment Acute generalized weakness Mild urinary tract infection: Treated with Rocephin Acute lactic acidosis History of seizures Anxiety Depression Uncontrolled diabetes with blood sugar in the range of 250: Insulin sliding scale Date of Service: Feb 22, 2025 Billing Provider: JESSICA DONNELLY MD Common Visit Codes: [id number] INP/OBS CARE(HIGH) JESSICA DONNELLY MD Feb 22, 2025 10:36
[2025-02-22 12:25] VITALS: BP 130/88; PULSE 96; RESP 17; TEMP 97.4; O2SAT 97
[2025-02-22 13:13] VITALS: BP 133/93; PULSE 96; RESP 17; TEMP 97.4; O2SAT 97
== END 2025-02-22 14:25 | disposition home or self-care (01) | DRG 638 ==
LOC: ER 18:28 → OVERFLOW 02-21 03:28 → EAST 02-21 04:40 → OVERFLOW 02-21 04:56 → EAST 02-21 04:58
PROVIDERS: ADMIT Nurse Practitioner Family; ATTEND Nurse Practitioner Family
DX: E11.65 Type 2 diabetes mellitus with hyperglycemia (principal); E87.21 Acute metabolic acidosis; N39.0 Urinary tract infection, site not specified; F41.9 Anxiety disorder, unspecified; F32.A Depression, unspecified; Z90.710 Acquired absence of both cervix and uterus; Z90.49 Acquired absence of other specified parts of digestive tract; Z79.899 Other long term (current) drug therapy; Z79.4 Long term (current) use of insulin
CPT/HCPCS: 36415; 80053; 81001; 82962; 83605; 83735; 85025; 87086; 96361; 96365; G0378; J1815